=== PATIENT | male | born 1945 | race Caucasian/White ===

== ENCOUNTER 2016-12-06 04:15 | Emergency (ER) | payer MEDICARE, MEDICAID ==
[2016-12-06] MEDS ORDERED: Ketorolac 60 MG/2 ML SDV IM ONE (04:32)
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
[2016-12-06] MEDS ORDERED: Acetaminophen/HYDROcodone 325-7.5 MG Tab PO ONE (05:12)
[2016-12-06 05:45] VITALS: BP 134/66
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
== END 2016-12-06 05:40 | disposition home or self-care (01) ==
LOC: MW.ED 04:15
DX: S22.41XA Multiple fractures of ribs, right side, initial encounter for closed fracture (principal); F17.210 Nicotine dependence, cigarettes, uncomplicated; Z98.890 Other specified postprocedural states; W22.8XXA Striking against or struck by other objects, initial encounter
CPT/HCPCS: 71101; 96372; 99283; A9270; J1885